=== PATIENT | female | born 1935 | race Caucasian/White ===

== ENCOUNTER → 2019-03-29 | Outpatient (CLI) | payer MEDICARE, BC ==
[~2019-03-29] MED LIST: MOTRIN800 MG PO; VICODIN 5/5001 UDTAB PO; [UNRECOGNIZED DRUG - REMARK]; blood pressure; estrogen
== END ==
LOC: MC.RAD 14:11
DX: Z12.31 Encounter for screening mammogram for malignant neoplasm of breast (principal); Z98.890 Other specified postprocedural states; Z85.3 Personal history of malignant neoplasm of breast

== ENCOUNTER → 2020-04-02 | Outpatient (CLI) | payer MEDICARE, BC | LOC: MC.RAD 13:45 | DX: Z12.31 Encounter for screening mammogram for malignant neoplasm of breast (principal); Z80.3 Family history of malignant neoplasm of breast; Z98.890 Other specified postprocedural states; Z98.82 Breast implant status ==

== ENCOUNTER → 2021-05-05 | Outpatient (CLI) | payer MEDICARE, BC | LOC: MC.RAD 11:02 | DX: Z12.31 Encounter for screening mammogram for malignant neoplasm of breast (principal) ==

== ENCOUNTER → 2022-07-08 | Outpatient (CLI) | payer MEDICARE, BC | LOC: MC.RAD 10:44 | DX: Z12.31 Encounter for screening mammogram for malignant neoplasm of breast (principal) ==

== ENCOUNTER 2023-05-01 21:45 | Inpatient (IN) | payer MEDICARE, BC ==
[~2023-05-01] VITALS: Ht 157.5 cm; Wt 58.3 kg
[2023-05-01 22:17] LABS: BASO % 0.5 % (0.0-2.0); EOS # 0.2 K/mm3 (0.0-0.7); EOS % 2.8 % (0.0-4.0); GRAN # 4.3 K/mm3 (1.4-6.5); GRAN % 71.7 % (42.2-75.2); HEMOGLOBIN 11.7 g/dl (12.5-16.0); LYMPH # 1.1 K/mm3 (1.2-3.4); LYMPH % 18.2 % (20.0-51.0); MEAN CELL VOLUME 94 fl (80.0-100.0); MEAN CORPUSCULAR HEMOGLOBIN 32 pg (27-31); MEAN CORPUSCULAR HGB CONC 34 g/dl (33.0-37.0); MEAN PLATELET VOLUME 8.9 fl (7.4-10.4); MONO # 0.4 K/mm3 (0.1-0.6); PLATELET COUNT 204 K/mm3 (130-400); RED BLOOD COUNT 3.69 M/mm3 (4.10-5.30); REDCELL DISTRIBUTION WIDTH-CV 12.6 % (11.5-14.5)
[2023-05-01 22:19] LABS: HEMATOCRIT 34.5 % (37.0-47.0)
[2023-05-01 22:27] LABS: PROTHROMBIN TIME 11.3 SECONDS (9.7-12.8)
[2023-05-01 22:29] LABS: PARTIAL THROMBOPLASTIN TIME 27.6 SECONDS (26.0-37.0)
[2023-05-01 22:49] LABS: ALANINE AMINOTRANSFERASE 15 U/L (0-55); ALBUMIN 3.2 gm/dL (3.4-4.8); ALKALINE PHOSPHATASE 78 U/L (40-150); ANION GAP 13 mmol/L (7-16); AST,SGOT 16 U/L (5-34); BILIRUBIN,TOTAL 0.3 mg/dL (0.2-1.2); BLOOD UREA NITROGEN 20 mg/dL (10-20); CALCIUM 8.8 mg/dL (8.4-10.2); CARBON DIOXIDE 21 mmol/L (23-31); CHLORIDE 108 mmol/L (98-107); CREATININE, serum 0.94 mg/dL (0.57-1.11); GLUCOSE 160 mg/dL (70-99); POTASSIUM 3.3 mmol/L (3.5-4.5); SODIUM 142 mmol/L (136-145)
[2023-05-01 22:56] LABS: TROPONIN-I < 0.010 ng/mL (0.00-0.033)
[2023-05-01 23:22] LABS: COLLECTION METHOD CATHETER
[2023-05-01 23:41] LABS: TRICYCLIC ANTIDEPRESS URINE NEGATIVE (NEGATIVE)
[2023-05-02] VITALS (10 sets, daily range): BP systolic 129–180; BP diastolic 90–113; PULSE 101–115; TEMP 97.6–98.5
[2023-05-02 00:11] LABS: URINE APPEARANCE Clear (CLEAR/HAZY); URINE BLOOD Negative (NEGATIVE); URINE COLOR Yellow (YELLOW); URINE GLUCOSE Negative (NEGATIVE); URINE KETONE Negative (NEGATIVE); URINE NITRATE Negative (NEGATIVE); URINE PROTEIN(semi-quant) Negative (NEGATIVE); URINE UROBILINOGEN 0.2 E.U/dL (0.2-1.0)
[2023-05-02 00:23] LABS: SQUAMOUS EPITHELIAL 0-2 /hpf (0-10); URINE RBC None Seen /hpf (0-2); URINE WBC None Seen /hpf (0-2)
[2023-05-02 00:24] LABS: URINE BACTERIA Rare /hpf (NONE SEEN)
[2023-05-02] MEDS ORDERED: SEROQUEL 2525 MG/TAB PO (00:26)
[2023-05-02] MEDS ORDERED: SEROQUEL50 MG PO (00:26)
[2023-05-02] MEDS ORDERED: CEPHALEXIN250 M1 PO (00:26)
[2023-05-02] MEDS ORDERED: XANAX .25M0.25 MG/TA PO (00:27)
[2023-05-02] MEDS ORDERED: MOBIC 7.5MG7.5 MG PO (00:27)
[2023-05-02] MEDS ORDERED: COZAAR100 MG PO (00:28)
[2023-05-02] MEDS ORDERED: ZOCOR 20MG20 MG PO (00:28)
[2023-05-02] MEDS ORDERED: REMERON 15M15 MG/TA1 PO (00:28)
[2023-05-02] MEDS ORDERED: TRAVATAN Z 2.52.5 ML OU (00:29)
--- NOTE | 2023-05-02 03:15 | NUR ---
patient arrived from ED at 0115, alert and oriented x3 with some forgetfullness and confusion. admission intake and med rec complete to best of ability with pt forgetfullness and no medication reference papers or family available at time of admit to this unit. pt denies chest pain and shortness of breath and nausea. IV in LAC is patent, site is clean dry and intact with NS running at 75 ml/hr. small scabbed skin tear on left forearm with steri strips, small scattered bruising and scabs on extremities noted. pt has no further needs, questions, or concerns at this time. fall precautions in place, call light within reach, will continue to monitor.
--- NOTE | 2023-05-02 05:52 | NUR ---
PATIENT ALERT AND ORIENTED TO SELF ONLY, FEELING ANXIOUS AND CONFUSED ABOUT WHERE AND WHAT IS GOING ON, PT REORIENTED TO PLACE, TIME AND SITUATION. WILL CONTINUE TO MONITOR, BED ALARAM ON, FALL PRECAUTIONS IN PLACE.
--- NOTE | 2023-05-02 08:41 | NUR ---
patient alert and oriented x4. patient denies pain at this time. patient ciwa score and assessment completed. patient reports falling last week while drinking. bed alarm on and call light within reach.
[2023-05-02 08:48] LABS: HEMATOCRIT 40.5 % (37.0-47.0); MEAN CELL VOLUME 92 fl (80.0-100.0); MEAN CORPUSCULAR HEMOGLOBIN 31 pg (27-31); MEAN CORPUSCULAR HGB CONC 34 g/dl (33.0-37.0); MEAN PLATELET VOLUME 8.8 fl (7.4-10.4); PLATELET COUNT 243 K/mm3 (130-400); RED BLOOD COUNT 4.41 M/mm3 (4.10-5.30); REDCELL DISTRIBUTION WIDTH-CV 12.6 % (11.5-14.5)
[2023-05-02 08:49] LABS: HEMOGLOBIN 13.8 g/dl (12.5-16.0)
[2023-05-02 09:01] LABS: BAND 3 % (0-10); EOSINOPHIL 1 % (0-4); LYMPHOCYTE 8 % (20.0-51.0); NEUTROPHILS 85 % (42.0-75.2); PLATELET ESTIMATE NORMAL (NORMAL)
[2023-05-02 09:10] LABS: CALCIUM 9.4 mg/dL (8.4-10.2); CHOLESTEROL RISK RATIO 3.1; CREATININE, serum 0.86 mg/dL (0.57-1.11); POTASSIUM 3.6 mmol/L (3.5-4.5)
--- NOTE | 2023-05-02 14:23 | NUR ---
TELESITTER WAS PLACED ON PATIENT ROOM DUE TO PATIENT CONSTANTLY CONFUSED AND WANTING TO GET OUT OF BED.
--- NOTE | 2023-05-02 14:33 | NUR ---
Scientific Research Associate contacted patient's daughter, Katy (ph#[phone]) to discuss discharge planning as patient has a diagnosis of dementia. Patient lives in [place] with her , Aniceto. Katy advised she lives with them and is providing care for Aniceto as he also has covid and has recently been hospitalized. Patient sees Dr. Kovacs for primary care and Katy advised she has been picking up patient's medications from [facility] pharmacy on her behalf. Patient normally does not need any DME, but does have a "bad knee" that will get a shot in May. Katy advised patient is normally independent with ADLS and the plan is for her to return home at time of discharge. Katy advised she provides transportation for patient and Aniceto to appointments. Katy advised patient has DPOA-HC and that the hospital should have a copy. ALBERT did not find a copy in EMR, so ALBERT contacted Dominga at Dr. Kovacs's office and requested copy. Dominga faxed a copy to ALBERT, which ALBERT placed in patient's chart. Discharge Plan: Home
--- NOTE | 2023-05-02 18:44 | NUR ---
PATIENT RESTING IN RECLINER WITH NO ACUTE DISTRESS NOTED. PATIENT ON ROOM AIR. NO INT AT THIS TIME. PATIENT PULLED OUT. TELEMETRY INTACT. TELESITTER AT BEDSIDE. PATIENT CARE ASSUMED FROM [facility] AT THIS TIME. RECLINER LOCKED AND CALL LIGHT WITHIN REACH. CHAIR ALARM ON.
--- NOTE | 2023-05-02 22:10 | NUR ---
PATIENT RESTING IN BED WITH EYES CLOSED IN THE APPEARANCE OF SLEEP. PATIENT EASILY AROUSED. ASSESSMENT AND MEDICATION ADMINISTRATION COMPLETED AT THIS TIME. PATIENT TOLERATED WELL. NEW IV STARTED TO LEFT FOREARM AND MARCOS WRAP PLACED OVER IV. PATIENT DENIES ANY NEEDS. BED IN LOW POSIIION WITH WHEELS LOCKED WITH RAILS UP X3 AND CALL LIGHT WITHIN REACH. BED ALARM ON. TELESITTER AT BEDSIDE.
[2023-05-03] VITALS (11 sets, daily range): BP systolic 115–178; BP diastolic 69–95; PULSE 82–112; TEMP 97.3–98.4
[2023-05-03 07:54] LABS: CREATININE, serum 0.76 mg/dL (0.57-1.11); POTASSIUM 3.5 mmol/L (3.5-4.5)
[2023-05-03 08:05] LABS: MAGNESIUM 1.8 mg/dL (1.6-2.6)
--- NOTE | 2023-05-03 10:11 | NUR ---
Portable Router Operator met with patient's daughter, Katy to discuss discharge planning and review OT recommendation for SNF. Katy advised patient was just recently at [facility] and she did not intend to have patient return. Katy advised patient does better once she is home with her and that is their plan. ALBERT spoke with Hospitalist who is in agreement with this plan and would recommend Home Health. Hospitalist anticipates patient being here a couple more days. Discharge Plan: Home, possible HH
--- NOTE | 2023-05-03 19:25 | NUR ---
PATIENT RESTING IN BED WANTING TO TALK TO HER AND PLESANTLY CONFUSED. TELEMETRY INTACT. INT TO LEFT FOREARM INTACT WITH MARCOS BANDAGE COVERING. TELESITTER IN PLACE. PATIENT CARE ASSUMED FROM [facility] AT THIS TIME. BED IN LOW POSITION WITH WHEELS LOCKED WITH RAILS UP X3 AND CALL LIGHT WITHIN REACH. BED ALARM ON.
--- NOTE | 2023-05-03 20:20 | NUR ---
PATIENT RESTING IN BED WITH TV ON WITH NO ACUTE DISTRESS NOTED. PATIENT ON ROOM AIR. ASSESSMENT AND MEDICATION ADMINISTRATION COMPLETED AT THIS TIME. PATIENT TOLERATED WELL. PATIENT ALERT, CONFUSED, EASILY REORIENTED, CO-OPERATIVE, AND AXIOUS. PATIENT STATED "I HAVEN'T EATEN ANY DINNER YET. I WANT TO TALK TO MY . I THOUGHT MY DAUGHTER WAS JUST HERE." PATIENT GIVEN SANDWICH TRAY AND CUP OF WATER. PATIENT REORIENTED. PATIENT DENIES ANY OTHER NEEDS AT THIS TIME. BED IN LOW POSITION WITH WHEELS LOCKED WITH RAILS UP X3 AND CALL LIGHT WITHIN REACH. BED ALARM ON.
[2023-05-04] VITALS (12 sets, daily range): BP systolic 148–170; BP diastolic 80–98; PULSE 91–121; TEMP 97.7–98.4
[2023-05-04 07:32] LABS: CALCIUM 8.7 mg/dL (8.4-10.2); CREATININE, serum 0.79 mg/dL (0.57-1.11)
--- NOTE | 2023-05-04 10:54 | NUR ---
Patient awake, alert, confused. C/O nausea after eating breakfast this AM. Denies pain or shortness of breath. Bed in lowest position, fall precautions in place, telesitter in room. Call light within reach.
--- NOTE | 2023-05-04 16:37 | NUR ---
ALBERT spoke with Dr. Paul and DILCIA Tapia who discussed PT reccomendations of SNF vs LTC. ALBERT provided per ALBERT Campbell that the daughter would want patient to return home. Dr. Paul will discuss further with daughter, but believes she will not ambulate well once home.
--- NOTE | 2023-05-04 16:48 | NUR ---
Patient ambulated to bathroom, x1 assist, steady with assistance but furniture surfing. Ambulated to chair, chair alarm on with call light within reach. Telesitter in place.
--- NOTE | 2023-05-04 19:15 | NUR ---
Patient increasingly anxious throughout the evening after 3pm, PRN given as ordered, reoriented. Dinner given to patient, states she does not want to eat she "just wants to go home." Encouraged to eat to gain strength, sitting in chair with call light within reach, chair alarm on, telesitter in place.
[2023-05-05] VITALS (13 sets, daily range): BP systolic 122–155; BP diastolic 73–94; PULSE 95–116; TEMP 97.5–98.7
--- NOTE | 2023-05-05 01:14 | NUR ---
patient lying in bed, alert and oriented x2 with confusion. pt denies chest pain and shortness of breath. IV in LF is patent, site is clean dry and intact. pt anxious from not being near family, repeatedly asking about and whether and daught knows where she is, pt reoriented to place and situation, reminded that jennifer was in to see pt twice per day shift RN report. scabbed abrasion to left forearm with steri strips, clean dry and intact, small generalized scattered bruising on extremities. fall precautions in place, call light within reach. will continue to monitor.
[2023-05-05 08:42] LABS: CALCIUM 9.1 mg/dL (8.4-10.2); CREATININE, serum 0.84 mg/dL (0.57-1.11); POTASSIUM 3.7 mmol/L (3.5-4.5)
--- NOTE | 2023-05-05 13:50 | NUR ---
Supervisor Compressed Yeast spoke with patient's daughter, Katy who advised she was told patient is discharging tomorrow. Katy advised patient's , Aniceto currently has home health services through [facility] and that they would like to get services up for patient. ALBERT contacted Bc at [facility] and left a message. ALBERT faxed referral to Bc at [facility] for review. Discharge Plan; Home with [facility]
[2023-05-06 00:30] VITALS: BP_SYST 136
--- NOTE | 2023-05-06 01:44 | NUR ---
patient lying in bed alert and oriented x2, intermittent pleasantly confused. pt denies chest pain and shortness of breath. IV in LF is patent, site is clean dry and intact. scabbed small abrasion on LF with steri strips is clean dry and intact. pt has no further needs, questions, or concerns. ambulating unsteady with walker and stand by assist. fall precautions in place. call light within reach. will continue to monitor.
[2023-05-06 03:18] VITALS: BP 130/59; PULSE 106; TEMP 97.5
[2023-05-06 04:08] VITALS: BP_SYST 130
[2023-05-06 07:33] VITALS: BP 104/73; PULSE 92; TEMP 97.9
[2023-05-06] MEDS ORDERED: LIPITOR 40MG TA40 MG PO (09:18)
[2023-05-06] MEDS ORDERED: PLAVIX 75MG TAB75 MG PO (09:18)
[2023-05-06] MEDS ORDERED: ASPIRIN E.C. 8181 MG PO (09:19)
[2023-05-06 09:27] VITALS: BP_SYST 104
--- NOTE | 2023-05-06 09:32 | NUR ---
Patient is resting in bed, alert and oriented to self, daughter at bedside. Assessment completed, breakfast ordered. no further needs at this time. Call light within reach.
--- NOTE | 2023-05-06 10:00 | NUR ---
Patient and daughter were provided with discharge information, all questions answered. IV access and telemetry were discontinued.
--- NOTE | 2023-05-06 16:15 | NUR ---
Sales Service Executive presented and reviewed IM form with patient's daughter, Katy who verbalized understanding and signed on patient's behalf. ALBERT placed form in chart then provided copy to Katy. ALBERT contacted Bc at [facility] and faxed discharge orders to include nursing/PT/OT/ST. Discharge Plan: Home with [facility]
== END 2023-05-06 11:00 | disposition home health service (06) | DRG 64 ==
LOC: COL.ER 21:45 → MEDICAL 05-02 01:14
PROVIDERS: Internal Medicine; Nurse Practitioner Family; ADMIT Internal Medicine
DX: I63.441 Cerebral infarction due to embolism of right cerebellar artery (principal); U07.1 COVID-19; I69.351 Hemiplegia and hemiparesis following cerebral infarction affecting right dominant side; F03.918 Unspecified dementia, unspecified severity, with other behavioral disturbance; I10 Essential (primary) hypertension; Z66 Do not resuscitate; M19.90 Unspecified osteoarthritis, unspecified site; E78.00 Pure hypercholesterolemia, unspecified; I65.23 Occlusion and stenosis of bilateral carotid arteries; F32.A Depression, unspecified; H40.9 Unspecified glaucoma; D64.9 Anemia, unspecified; E87.6 Hypokalemia; E04.1 Nontoxic single thyroid nodule; R29.700 NIHSS score 0; Z90.710 Acquired absence of both cervix and uterus; Z90.49 Acquired absence of other specified parts of digestive tract; Z79.899 Other long term (current) drug therapy; Z85.3 Personal history of malignant neoplasm of breast; Z92.3 Personal history of irradiation
CPT/HCPCS: A9575; J0360; J1200; J3480; J7030; Q3014; Q9967

== ENCOUNTER 2023-05-13 15:40 | Emergency (ER) | payer MEDICARE, BC ==
[~2023-05-13] VITALS: Ht 147.3 cm; Wt 57.7 kg
[~2023-05-13 15:40] MED LIST changes: +ASPIRIN E.C. 8181 MG PO; +CEPHALEXIN250 M1 PO; +COZAAR100 MG PO; +LIPITOR 40MG TA40 MG PO; +MOBIC 7.5MG7.5 MG PO; +PLAVIX 75MG TAB75 MG PO; +REMERON 15M15 MG/TA1 PO; +SEROQUEL 2525 MG/TAB PO; +SEROQUEL50 MG PO; +TRAVATAN Z 2.52.5 ML OU; +XANAX .25M0.25 MG/TA PO; +ZOCOR 20MG20 MG PO
[2023-05-13] MEDS ORDERED: QUEtiapine 25 MG TAB PO ONE (18:15)
[2023-05-13 18:47] VITALS: TEMP 98.6
[2023-05-13 19:50] VITALS: BP 145/88; PULSE 120
== END 2023-05-13 19:50 | disposition home or self-care (01) ==
LOC: COL.ER 15:40
DX: K59.00 Constipation, unspecified (principal); R00.0 Tachycardia, unspecified

== ENCOUNTER 2024-02-05 11:04 | Emergency (ER) | payer MEDICARE, BC ==
[~2024-02-05] VITALS: Ht 152.4 cm; Wt 54.5 kg
[~2024-02-05 11:04] MED LIST changes: +MASON NATURAL2000 IU PO; -SEROQUEL50 MG PO
[2024-02-05 11:08] VITALS: TEMP 97.7
[2024-02-05] MEDS ORDERED: NS 500 ML IV ONE (11:15)
[2024-02-05 11:29] LABS: BASO % 0.8 % (0.0-2.0); EOS # 0.1 K/mm3 (0.0-0.7); EOS % 2.1 % (0.0-4.0); GRAN # 2.3 K/mm3 (1.4-6.5); GRAN % 60.3 % (42.2-75.2); HEMOGLOBIN 11.9 g/dl (12.5-16.0); LYMPH % 26.1 % (20.0-51.0); MEAN CELL VOLUME 93 fl (80.0-100.0); MEAN CORPUSCULAR HEMOGLOBIN 31 pg (27-31); MEAN CORPUSCULAR HGB CONC 33 g/dl (33.0-37.0); MONO # 0.4 K/mm3 (0.1-0.6); MONO % 10.2 % (1.7-9.3); PLATELET COUNT 208 K/mm3 (130-400); RED BLOOD COUNT 3.87 M/mm3 (4.10-5.30); REDCELL DISTRIBUTION WIDTH-CV 13.6 % (11.5-14.5)
[2024-02-05 11:43] LABS: ALBUMIN 3.2 g/dL (3.4-4.8); BILIRUBIN,TOTAL 0.7 mg/dL (0.2-1.2); C-REACTIVE PROTEIN 0.35 mg/dL (0.00-0.50); CALCIUM 8.6 mg/dL (8.4-10.2); CREATININE, serum 1.16 mg/dL (0.57-1.11); POTASSIUM 4.2 mEq/L (3.5-4.5); TOTAL PROTEIN 5.7 g/dl (6.2-8.1)
[2024-02-05 11:48] LABS: TROPONIN-I 0.017 ng/mL (0.00-0.033)
[2024-02-05 13:13] VITALS: BP 119/81; PULSE 75
== END 2024-02-05 13:30 | disposition home or self-care (01) ==
LOC: COL.ER 11:04
PROVIDERS: Emergency Medicine
DX: I95.1 Orthostatic hypotension (principal); R55 Syncope and collapse; Z82.3 Family history of stroke
CPT/HCPCS: J7040